=== PATIENT | male | born 1990 | race Caucasian/White ===

== ENCOUNTER 2020-08-23 11:22 | Emergency (ER) | payer BC, OTHER ==
[~2020-08-23] VITALS: Ht 177.8 cm; Wt 95.3 kg
[2020-08-23 11:32] VITALS: BP 134/81
--- NOTE | 2020-08-23 12:20 | NUR ---
BLOOD DRAWN DONE AND SENT TO LAB.
== END 2020-08-23 12:21 | disposition home or self-care (01) ==
LOC: ER 11:26
DX: R50.9 Fever, unspecified (principal); F41.9 Anxiety disorder, unspecified; F17.200 Nicotine dependence, unspecified, uncomplicated
CPT/HCPCS: 86788; 86789; 87207-TC